=== PATIENT | male | born 1975 | race Caucasian/White ===

== ENCOUNTER 2017-11-08 15:02 | Emergency (ER) | payer OTHER ==
[~2017-11-08] VITALS: Ht 177.8 cm; Wt 63.0 kg
[~2017-11-08 15:02] MED LIST: ACET50TA PO; ALEV220C2 PO; GABA100C PO; KETO-13 PO; OXYC1TAB15 PO; PERCOCET PO
[2017-11-08] MEDS ORDERED: suboxone PO (15:18)
[2017-11-08] MEDS ORDERED: SUBO8MIS SL (15:23)
[2017-11-08] MEDS ORDERED: NS 1,000 ML IV SCH (15:57)
[2017-11-08] MEDS ORDERED: ONDANSETRON 4MG/2ML VIAL (J2405) IV ONE (16:00)
[2017-11-08] MEDS ORDERED: KETOROLAC 30 MG/ML VIAL (J1885) IV ONE (16:00)
[2017-11-08 16:30] LABS: BASO # 0.1 10^3/uL (0.0-0.2); BASO % 0.5 % (0.0-1.0); EOS # 0.1 10^3/uL (0.0-0.50); EOS % 0.5 % (0.0-3.0); IMMATURE GRANULOCYTE % 0.4 % (0-0); LYMPH # 1.1 10^3/uL (1.5-4.5); LYMPH % 11.3 % (24.0-44.0); MEAN CORPUSCULAR HEMOGLOBIN 28.9 pg (27.0-33.0); MEAN CORPUSCULAR HGB CONC 34.9 g/dl (32.0-36.5); MEAN CORPUSCULAR VOLUME 82.9 fl (80.0-96.0); MONO # 0.5 10^3/uL (0.0-0.8); MONO % 4.6 % (0.0-5.0); NEUTROPHILS # 8.3 10^3/uL (1.8-7.7); NEUTROPHILS % 82.7 % (36.0-66.0); PLATELET COUNT, AUTOMATED 207 10^3/uL (150-450); RED CELL DISTRIBUTION WIDTH 11.9 % (11.5-14.5)
[2017-11-08 16:33] LABS: INR 1.03
[2017-11-08 16:51] LABS: ALBUMIN 3.6 GM/DL (3.2-5.2); ALBUMIN/GLOBULIN RATIO 1.29 (1.00-1.93); ALKALINE PHOSPHATASE 60 U/L (45-117); ALT/SGPT 17 U/L (12-78); ANION GAP 8 MEQ/L (8-16); AST/SGOT 13 U/L (7-37); BILIRUBIN,DIRECT 0.1 MG/DL (0.0-0.2); BILIRUBIN,TOTAL 0.4 MG/DL (0.2-1.0); BLOOD UREA NITROGEN 15 MG/DL (7-18); CALCIUM LEVEL 8.4 MG/DL (8.5-10.1); CARBON DIOXIDE LEVEL 27 MEQ/L (21-32); CHLORIDE LEVEL 106 MEQ/L (98-107); CREATININE FOR GFR 1.12 MG/DL (0.70-1.30); GLOMERULAR FILTRATION RATE > 60.0 (>60); GLUCOSE, FASTING 130 MG/DL (70-105); POTASSIUM SERUM 3.5 MEQ/L (3.5-5.1); SODIUM LEVEL 141 MEQ/L (136-145); TOTAL PROTEIN 6.4 GM/DL (6.4-8.2)
[2017-11-08] MEDS ORDERED: KETO10TAB PO (18:04)
[2017-11-08] MEDS ORDERED: ZOFR4TAB3 PO (18:04)
[2017-11-08 18:18] VITALS: BP 123/71
--- NOTE | 2017-11-09 16:06 | REP ---
CT ABDOMEN AND PELVIS WITHOUT CONTRAST: CT abdomen and pelvis was performed without IV contrast. Sagittal and coronal reconstruction images are performed. Visualized lung bases are clear. The liver, gallbladder, spleen, adrenals, and pancreas are grossly unremarkable. The right kidney is unremarkable. Left kidney demonstrates a tiny 2 mm calculus in the lower pole collecting system and to other jesenia like calcifications in that region. There is mild left hydroureteronephrosis caused by a 3 mm stone in the distal left ureter. No bladder calculus is seen. There is no abdominal aortic aneurysm with mild atherosclerotic calcifications. There is no adenopathy. There is no free air or free fluid. There is no bowel wall thickening or evidence of appendicitis. No pelvic mass is seen. IMPRESSION: There is a 3 mm calculus in the distal left ureter causing mild left hydroureteronephrosis. Three tiny stones are seen in the left lower pole collecting system. Signed by Dontae Leyva MD 11/10/2017 08:24 P
== END 2017-11-08 18:20 | disposition home or self-care (01) ==
LOC: M ED 15:02 → EDBD 15:02 → M ED 18:20
DX: N20.1 Calculus of ureter (principal); G89.29 Other chronic pain; F19.10 Other psychoactive substance abuse, uncomplicated; N13.30 Unspecified hydronephrosis; Z79.899 Other long term (current) drug therapy; Z88.8 Allergy status to other drugs, medicaments and biological substances
CPT/HCPCS: 74176; 80048; 80076; 81001; 83690; 85025; 85610; 96361; 96374; 96375; 99284; J1885; J2405

== ENCOUNTER 2017-11-10 14:21 | Emergency (ER) | payer OTHER ==
[~2017-11-10] VITALS: Ht 167.6 cm; Wt 65.9 kg
[~2017-11-10 14:21] MED LIST changes: +KETO10TAB PO; +SUBO8MIS SL; +ZOFR4TAB3 PO; +suboxone PO
[2017-11-10 15:00] LABS: BASO % 0.3 % (0.0-1.0); IMMATURE GRANULOCYTE % 0.1 % (0-0); LYMPH # 1.1 10^3/uL (1.5-4.5); LYMPH % 12.7 % (24.0-44.0); MEAN CORPUSCULAR HEMOGLOBIN 28.8 pg (27.0-33.0); MEAN CORPUSCULAR HGB CONC 34.8 g/dl (32.0-36.5); MEAN CORPUSCULAR VOLUME 82.9 fl (80.0-96.0); MONO # 0.5 10^3/uL (0.0-0.8); NEUTROPHILS # 7.3 10^3/uL (1.8-7.7); NEUTROPHILS % 80.9 % (36.0-66.0); PLATELET COUNT, AUTOMATED 188 10^3/uL (150-450); RED CELL DISTRIBUTION WIDTH 11.8 % (11.5-14.5)
[2017-11-10] MEDS ORDERED: NS 1,000 ML IV ONE (15:00)
[2017-11-10 15:21] LABS: CALCIUM LEVEL 9.1 MG/DL (8.5-10.1); CREATININE FOR GFR 1.45 MG/DL (0.70-1.30); GLOMERULAR FILTRATION RATE 56.8 (>60); POTASSIUM SERUM 3.5 MEQ/L (3.5-5.1)
[2017-11-10] MEDS ORDERED: KETOROLAC 30 MG/ML VIAL (J1885) IV ONE (16:45)
[2017-11-10 18:42] LABS: MUCUS, URINE RFX SMALL (NEGATIVE); SPECIFIC GRAVITY UR AUTO RFX 1.025 (1.002-1.035); SQUAM EPITHELIAL CELL UR AURFX 0 /HPF (0-6)
[2017-11-10] MEDS ORDERED: ONDANSETRON 4 MG ORAL DISINTEGRATING TAB (S0181) PO ONE (18:45)
--- NOTE | 2017-11-10 18:46 | REP ---
RENAL ULTRASOUND: Real-time sonographic evaluation of the kidneys are performed. Kidneys are normal in size and echotexture, right kidney measuring 10.7 x 6.2 x 4.2 cm and left kidney 9.9 x 5.0 x 5.0 cm. There is no hydronephrosis bilaterally. A few tiny stones are seen in the left lower pole collecting system. Urinary bladder is not well distended and not well evaluated. IMPRESSION: No hydronephrosis. A few tiny stones lower pole of the left kidney. Signed by Dontae Leyva MD 11/10/2017 08:45 P
[2017-11-10 18:57] VITALS: BP 156/91
== END 2017-11-10 19:06 | disposition home or self-care (01) ==
LOC: EDBD 14:21 → M ED 14:21
DX: N23 Unspecified renal colic (principal); Z87.891 Personal history of nicotine dependence; F19.21 Other psychoactive substance dependence, in remission; Z79.899 Other long term (current) drug therapy; Z88.8 Allergy status to other drugs, medicaments and biological substances
CPT/HCPCS: 76775; 80048; 81001; 85025; 96374; 99284; J1885

== ENCOUNTER 2021-05-15 21:10 | Emergency (ER) | payer OTHER ==
[~2021-05-15] VITALS: Ht 172.7 cm; Wt 79.9 kg
[2021-05-15 21:10] VITALS: BP 143/83
[~2021-05-15 21:10] MED LIST changes: -ACET50TA PO; +MAPA500T17 PO; -OXYC1TAB15 PO; +OXYC1TAB23 PO; +OXYC7.5T3 PO; -PERCOCET PO; +ZOFR4TAB14 PO; -ZOFR4TAB3 PO
== END 2021-05-16 03:32 | disposition left against medical advice (07) ==
LOC: M ED 21:10
DX: R22.2 Localized swelling, mass and lump, trunk (principal); Z53.21 Procedure and treatment not carried out due to patient leaving prior to being seen by health care provider

== ENCOUNTER → 2022-11-11 | Outpatient (REF) | LOC: M LAB 10:58 | PROVIDERS: ATTEND Nurse Practitioner Adult Health | DX: Z02.1 Encounter for pre-employment examination (principal) ==

== ENCOUNTER → 2023-10-21 | Outpatient (REF) | LOC: M EMP 07:55 | PROVIDERS: ATTEND Family Medicine | DX: Z11.52 Encounter for screening for COVID-19 (principal) ==